=== PATIENT | female | born 1985 | race Caucasian/White ===

== ENCOUNTER 2021-01-11 14:35 | Outpatient (REF) | payer MEDICAID, SELFPAY ==
[2021-01-11 15:52] LABS: Hematocrit 31.6 % (37-47); Hemoglobin 9.6 g/dl (12.0-16.0); Mean Corpuscular HGB Conc 30.4 g/dl (31.0-35.0); Mean Corpuscular Hemoglobin 24.2 pg (27.0-33.0); Mean Corpuscular Volume 79.8 fL (80-98); Platelet Count 383 X10*3/uL (160-400); Red Blood Count 3.96 X10*6/uL (4.20-5.50); Red Cell Distribution Width 15.6 % (11.0-16.0); White Blood Count 7.5 X10*3/uL (4.8-10.8)
[2021-01-11 16:36] LABS: HCG Quantitative < 2 mIU/mL
[2021-01-12 03:44] LABS: CT PCR NOT DETECTED (Not Detect.); NG PCR NOT DETECTED (Not Detect.)
[2021-01-12 14:31] LABS: BV Int Neg Control Negative (Negative); BV Int Pos Control Positive (Positive)
[2021-01-13 23:31] LABS: HPV mRNA E6/E7 rflx Not Detected (Not Detected)
== END 2021-01-11 14:36 | disposition home or self-care (01) ==
LOC: HO.LAB 14:35
PROVIDERS: PCP Nurse Practitioner Primary Care; Visit Provider Advanced Practice Midwife
DX: N92.1 Excessive and frequent menstruation with irregular cycle (principal); N93.9 Abnormal uterine and vaginal bleeding, unspecified; Z20.2 Contact with and (suspected) exposure to infections with a predominantly sexual mode of transmission; Z11.51 Encounter for screening for human papillomavirus (HPV)
CPT/HCPCS: 36415; 84443; 84702; 85027; 87480; 87491; 87510; 87591; 87624; 87660; 88142; 99202

== ENCOUNTER → 2021-01-12 11:22 | Outpatient (BNVA) | payer MEDICAID, SELFPAY | PROVIDERS: PCP Nurse Practitioner Primary Care; Visit Provider Physician Assistant ==

== ENCOUNTER 2021-01-17 13:52 | Outpatient (REF) | payer MEDICAID, SELFPAY ==
--- NOTE | ~2021-01-17 | US_ITS ---
EXAMINATION:US pelvic complete, US transvaginal CLINICAL INFORMATION: Reason for Exam N92.0 - Excessive and frequent menstruation with regular ... COMPARISON: No priors available. LMP: 01/15/2021 FINDINGS: UTERUS: The uterus is anteverted. Size: 8.3 x 4.9 x 5 cm. Uterine mass: There is no uterine mass. Cervix: There are nabothian cysts otherwise Grossly unremarkable. Endometrium: No ultrasound evidence of endometrial lesion. endometrial thickness measures 0.8 cm ADNEXA: There are bilateral Essure devices Right ovary: Normal in size. Left ovary: Normal in size. Doppler exam: Normal Doppler flow identified in both ovaries. FREE FLUID: Trace amount of free fluid. OTHER FINDINGS: None US/US transvaginal IMPRESSION: Normal pelvic ultrasound.
--- NOTE | ~2021-01-17 | US_ITS ---
EXAMINATION:US pelvic complete, US transvaginal CLINICAL INFORMATION: Reason for Exam N92.0 - Excessive and frequent menstruation with regular ... COMPARISON: No priors available. LMP: 01/15/2021 FINDINGS: UTERUS: The uterus is anteverted. Size: 8.3 x 4.9 x 5 cm. Uterine mass: There is no uterine mass. Cervix: There are nabothian cysts otherwise Grossly unremarkable. Endometrium: No ultrasound evidence of endometrial lesion. endometrial thickness measures 0.8 cm ADNEXA: There are bilateral Essure devices Right ovary: Normal in size. Left ovary: Normal in size. Doppler exam: Normal Doppler flow identified in both ovaries. FREE FLUID: Trace amount of free fluid. OTHER FINDINGS: None US/US pelvic complete IMPRESSION: Normal pelvic ultrasound.
== END 2021-01-17 13:53 | disposition home or self-care (01) ==
LOC: HO.US 13:52
PROVIDERS: Referring Provider Nurse Practitioner Primary Care; Visit Provider Advanced Practice Midwife
DX: N92.0 Excessive and frequent menstruation with regular cycle (principal); D64.9 Anemia, unspecified
CPT/HCPCS: 76830; 76856

== ENCOUNTER → 2021-02-03 14:14 | Outpatient (BNVA) | payer MEDICAID, SELFPAY | PROVIDERS: PCP Nurse Practitioner Primary Care; Visit Provider Advanced Practice Midwife ==

== ENCOUNTER → 2021-02-10 14:57 | Outpatient (BNVA) | payer MEDICAID, SELFPAY | PROVIDERS: Visit Provider Obstetrics & Gynecology ==

== ENCOUNTER 2021-03-17 10:04 | Outpatient (REF) | payer MEDICAID, SELFPAY | END 2021-03-17 10:05 | disposition home or self-care (01) | LOC: HO.LAB 10:04 | PROVIDERS: PCP Nurse Practitioner Primary Care; Visit Provider Obstetrics & Gynecology | DX: N93.9 Abnormal uterine and vaginal bleeding, unspecified (principal) | CPT/HCPCS: 58100; 88305; 99212 ==

== ENCOUNTER → 2021-03-24 13:00 | Outpatient (BNVA) | payer MEDICAID, SELFPAY | PROVIDERS: Visit Provider Obstetrics & Gynecology ==

== ENCOUNTER 2021-04-07 06:14 | Day surgery (SDC) | payer MEDICAID, SELFPAY ==
[2021-04-07] VITALS (8 sets, daily range): BP systolic 104–126; BP diastolic 64–77; PULSE 66–104; RESP 16–18; TEMP 36.2–36.5; O2SAT 98–100; BMI 30.2
--- NOTE | 2021-04-07 07:31 | HO.ANESPROP2 ---
HPI - Anesthesia Eval Consult details Narrative: 35 yo female patient here for D&C, Hysteroscopy with novasure PMFSH Active Problems Active Problems: All Active Problems (Updated 02/23/21 @ 14:25 by Tigist Elias) Menorrhagia with regular cycle (Acute) Chronic nausea (Acute) Anemia (Acute) Rectal bleeding (Acute) Past Medical History Medical History Anemia Anxiety GERD (gastroesophageal reflux disease) Iron deficiency anemia Migraines Pituitary adenoma PTSD (post-traumatic stress disorder) Rectal bleeding Family History Family History Father No problems noted. Mother No problems noted. Family history of problems with anesthesia: No Surgical History Surgical History History of bilateral tubal ligation History of loop electrical excision procedure (LEEP) History of Problems with Anesthesia: No Social History Social History Household Members: Children Alcohol intake: never Patient Tobacco Use Status: Former Tobacco user Use of substances other than those prescribed or required for medical reasons: Yes Substance Use Type: Marijuana Have you been hit, kicked, punched, or otherwise hurt by someone within the past year? If so, by whom?: No Are you DNR?: No Advance Directives: No Advance Directives Information Provided: Yes Current occupational status: unemployed Meds Allergies Allergy/AdvReac Type Severity Reaction Status Date / Time kiwi [KIWI] Allergy Unknown MOUTH Verified 03/24/21 12:58 SWELLS Home Medications Medication Instructions Recorded Confirmed Last Taken Type clonazepam 1 tab PO DAILY PRN 02/23/21 02/23/21 Unknown History Exam Exam Date and Time: April 07, 2021 0731 Height,Weight and Vital Signs: Height 5 ft 6 in Weight 84.822 kg Last Vital Signs Temp 97.1 F 04/07/21 06:21 Pulse 77 04/07/21 06:21 Resp 18 04/07/21 06:21 BP 118/71 04/07/21 06:21 Pulse Ox 99 04/07/21 06:21 Airway Mallampati Class: II TM Dist: >3cm Neck ROM: Full Heart: RRR Lungs: CTAB Assessment and Plan Assessment Anesthesia Assessment: Anesthesia Plan Discussed and Chart Reviewed Final Anesthetic Review NPO: Yes ASA Class: II Final Preanesthetic Review: No Changes in Pt Med Stat, Meds/Allgs Chart Reviewed, Consent Obtained/Reviewed and Anes Risks/Benef Reviewed Patient Risk: Low Procedure Risk: Low Assessment/Block/Sedation in SS: Assess/Block/Sedation-SS Anesthetic Plan Anesthetic Plan: GA Disposition: Standard PACU
[2021-04-07] MEDS: Lactated Ringers 1,000 ML 100 ML IVCONT (07:42)
--- NOTE | 2021-04-07 07:59 | MHC.SHP ---
Pre-Procedural Eval Section A Date of Service: 04/07/21 The patient is an INPATIENT: No Changes since office visit: No Cold of Flu in the past 2 weeks, No New Medical Problems, No Changes in Medication and No Patient answered all questions The History & Physical has been completed within 30 days and I have reviewed it.: Yes Section B Chief Complaint: AVB Allergies: Allergies Allergy/AdvReac Type Severity Reaction Status Date / Time kiwi [KIWI] Allergy Unknown MOUTH Verified 03/24/21 12:58 RICHARD Plan I have reviewed the history and physical and performed a pertinent physical examination on my patient. No changes have occurred unless specified.
--- NOTE | 2021-04-07 08:00 | W.PM.OPN ---
Operative Note Operative Note Date of Service: 04/07/21 Narrative: Pre-Op Diagnosis: abnormal uterine bleeding Post-Op Diagnosis: abnormal uterine bleeding Procedures performed: hysteroscopy dilation and curettage, novasure ablation Functional Analyst: none Complications: none Specimens: endometrial curettings Disposition: PACU Ms. Cardona is a 35 year old with long sstanding abnormal uterine bleeding. Medical management was declined due to previous intolerable side effects with hormonal contraception (prior sterilization procedure done so that she would not have to use hormonal contraception. An endometrial biopsy was performed, which showed superficial fragments of endometrium with lytic changes and abundant background blood . An ultrasound was performed, which was unremarkable (normal pelvic ultrasound). The patient was counseled that endometrial ablation is not indicated if she desires future fertility. The patient expressed understanding of this and stated that her family planning is complete and her current form of control is bilateral salpingectomy. Surgical Risks: The patient was informed of the risks and benefits of the procedure. Risks included but were not limited to bleeding, infection, injury to the vulva, vagina, or cervix, and uterine perforation. The patient was also informed of the risk that the Novasure ablation may not result in full resolution of symptoms. The patient expressed understanding of the risks involved, all questions were answered, and she consented to the procedure. The patient was taken to the operating room where a time out was performed to confirm correct patient and correct procedure. General anesthesia was established. The patient was then positioned on the operating table in the dorsal lithotomy position and her legs supported using stirrups. All pressure points were padded and a warm blanket was placed to maintain control of core body temperature. The patient was then prepped and draped in the usual sterile fashion. A bimanual exam was performed and the uterus was found to be 8wk size, anteverted. The adnexa were palpated bilaterally and there were no palpable masses. The bladder was emptied with a straight catheter. A bivalve speculum was inserted into the vagina. The anterior lip of the cervix was visualized and grasped using a single tooth tenaculum. 12mL of 1% lidocaine was injected at the 4 and 8 o?clock positions as a paracervical block. The hysteroscope was introduced through the cervix and advanced to the fundus of the uterus under direct visualization using distending media. Inspection of the entire uterine cavity was performed. There were no abnormalities noted. The ostia were visualized bilaterally. The hysteroscope was then removed and a sharp curettage was performed covering all surfaces in 360 degrees. The Novasure SureSound device was then inserted through the cervix. The malecot was then deployed and the device was anchored on the internal os. The cervical length was measured and found to be 3.5cm. The probe was then extended to the fundus and the uterine cavity was measured and found to be 6.5cm. The SureSound was then removed and the Novasure was introduced through the cervix and advanced to the fundus. The Novasure was released and rotated from side to side in order to measure the cavity width; it was found to be 4.5cm. The test was performed using the NovaSure and there was no leakage of gas noted. The NovaSure was then set and deployed. It was set to a power of 161W and a burn time of 49s. The NovaSure was then fully retracted and the hysteroscope reintroduced through the cervix and global ablation to the entire cavity was noted. The procedure was felt to be successful. The hysteroscope was then removed and the single tooth tenaculum was removed from the anterior lip of the cervix. Good hemostasis was confirmed. All needle, sponge, and instrument counts were noted to be correct x2 at the end of the procedure. The patient was transferred to the recovery room in stable condition.
[2021-04-07] MEDS: ondansetron HCL 4 MG/2 ML VIAL IVPUSH (08:53)
[2021-04-07] MEDS: fentaNYL citrate/PF 100 MCG/2 ML VIAL 25 MCG IVPUSH (08:55)
[2021-04-07] MEDS: oxyCODONE HCl Immed Release 5 MG TABLET PO (09:02)
[2021-04-07] MEDS: Ketorolac Tromethamine 15 MG/ML VIAL IVPUSH (09:02)
== END 2021-04-07 11:22 | disposition home or self-care (01) ==
LOC: HO.SSS 06:15
PROVIDERS: PCP Nurse Practitioner Primary Care; Visit Provider Obstetrics & Gynecology
PROC: (CPT 58563; principal; 2021-04-07 07:30)
DX: N93.9 Abnormal uterine and vaginal bleeding, unspecified (principal); D50.9 Iron deficiency anemia, unspecified; F41.9 Anxiety disorder, unspecified; Z98.51 Tubal ligation status; F12.90 Cannabis use, unspecified, uncomplicated; Z79.899 Other long term (current) drug therapy
CPT/HCPCS: 58563; 88305; J1100; J1885; J2250; J2370; J2405; J2765; J3010

== ENCOUNTER 2021-04-26 13:03 | Outpatient (REF) | payer MEDICAID, SELFPAY ==
[2021-04-27 07:39] LABS: CT PCR NOT DETECTED (Not Detect.); NG PCR NOT DETECTED (Not Detect.)
[2021-04-27 08:52] LABS: BV Int Neg Control Negative (Negative); BV Int Pos Control Positive (Positive)
== END 2021-04-26 13:04 | disposition home or self-care (01) ==
LOC: HO.LAB 13:03
PROVIDERS: Visit Provider Obstetrics & Gynecology
DX: Z11.3 Encounter for screening for infections with a predominantly sexual mode of transmission (principal); R10.2 Pelvic and perineal pain
CPT/HCPCS: 87086; 87480; 87491; 87510; 87591; 87660; 99212